=== PATIENT | male | born 1970 | race Caucasian/White ===

== ENCOUNTER → 2022-12-13 | Day surgery (SDC) | payer BC ==
[~2022-12-13] MED LIST: Flumazenil 0.1 MG/ML 10 ML MDV ONE; Ketamine 200 MG/20 ML MDV ONE; Lactated Ringers 1,000 ML IV SCH; Midazolam 1 MG/ML 2 ML SDV ONE; Phenylephrine 1% 10 MG/ML SDV ONE; Propofol 200 MG/20 ML SDV ONE; fentaNYL 50 MCG/ML SDV ONE
== END ==
LOC: CC.SDS 10:22
PROVIDERS: ATTEND Family Medicine
DX: Z12.11 Encounter for screening for malignant neoplasm of colon (principal); K57.30 Diverticulosis of large intestine without perforation or abscess without bleeding; M54.2 Cervicalgia; G89.29 Other chronic pain; M19.90 Unspecified osteoarthritis, unspecified site; Z79.899 Other long term (current) drug therapy; Z98.890 Other specified postprocedural states
CPT/HCPCS: 45378; J2250; J2370; J2704; J3010; J7120; J3490

== ENCOUNTER 2023-04-23 13:08 | Observation (INO) | payer BC ==
[2023-04-23] MEDS ORDERED: Sodium Chloride 0.9% 1,000 ML IV ONE (13:17)
[2023-04-23] MEDS ORDERED: LORazepam 2 MG/ML Syringe IVPUSH ONE (13:17)
[2023-04-23 13:33] LABS: BASOPHILS ABSOLUTE AUTO 0.03 10^3/uL (0.00-0.50); BASOPHILS PERCENT AUTO 0.5 % (0-1); EOSINOPHILS ABSOLUTE AUTO 0.05 10^3/uL (0.00-1.50); EOSINOPHILS PERCENT AUTO 0.8 % (0-6); HEMATOCRIT 43.5 % (42.0-52.0); HEMOGLOBIN 15.2 g/dL (14.0-18.0); LYMPHOCYTES ABSOLUTE AUTO 2.24 10^3/uL (0.60-5.00); LYMPHOCYTES PERCENT AUTO 34.7 % (24-44); MEAN CORPUSCULAR HEMOGLOBIN 29.7 pg (27.0-32.0); MEAN CORPUSCULAR HGB CONC 34.9 g/dL (32.0-36.0); MEAN CORPUSCULAR VOLUME 85.1 fL (83.0-97.0); MONOCYTES ABSOLUTE AUTO 0.42 10^3/uL (0.00-1.50); MONOCYTES PERCENT AUTO 6.5 % (0-10); NEUTROPHILS ABSOLUTE AUTO 3.71 x10^3/uL (1.80-8.00); NEUTROPHILS PERCENT AUTO 57.5 % (41-71); PLATELET COUNT,PLT 240 10^3/uL (150-400); RED BLOOD CELL COUNT 5.11 x10^6/uL (4.50-6.00); WHITE BLOOD CELL COUNT,WBC 6.5 10^3/uL (4.0-11.0)
[2023-04-23 13:50] LABS: ALBUMIN 4.4 g/dL (3.4-5.0); BILIRUBIN TOTAL 0.5 mg/dL (0.0-1.0); CALCIUM 9.5 mg/dL (8.4-10.1); EST CRCL DRUG DOSING (CG) 90.99 mL/min; MAGNESIUM 1.9 mg/dL (1.8-2.4); PROTEIN TOTAL,TP 7.7 g/dL (6.4-8.2)
[2023-04-23 14:45] LABS: APPEARANCE,URINE CLEAR (CLEAR); BILIRUBIN,URINE NEGATIVE (NEGATIVE); COLOR,URINE YELLOW (YELLOW); GLUCOSE,URINE NEGATIVE (NEGATIVE); KETONES,URINE NEGATIVE (NEGATIVE); LEUKOCYTE ESTERASE,URINE NEGATIVE (NEGATIVE); NITRITE,URINE NEGATIVE (NEGATIVE); OCCULT BLOOD,URINE NEGATIVE (NEGATIVE); PROTEIN,URINE NEGATIVE (NEGATIVE); UROBILINOGEN,URINE 0.2 EU/dL (0.2-1.0)
[2023-04-23 14:51] LABS: AMPHETAMINES,URINE NEGATIVE (NEGATIVE); BARBITURATES,URINE NEGATIVE (NEGATIVE); BENZODIAZEPINE,URINE NEGATIVE (NEGATIVE); MDMA (ECSTASY), URINE NEGATIVE (NEGATIVE); METHADONE,URINE NEGATIVE (NEGATIVE); METHAMPHETAMINES,URINE NEGATIVE (NEGATIVE); OPIATES,URINE NEGATIVE (NEGATIVE); OXYCODONE,URINE NEGATIVE (NEGATIVE); PHENCYCLIDINE,URINE NEGATIVE (NEGATIVE); TCA,URINE NEGATIVE (NEGATIVE)
[2023-04-23] MEDS ORDERED: Acetaminophen 325 MG Tab PO PRN (15:29)
[2023-04-23] MEDS ORDERED: Ondansetron 4 MG/2 ML SDV IV PRN (15:29)
[2023-04-23] MEDS ORDERED: Meclizine 12.5 MG Tab PO PRN (15:29)
[2023-04-23] MEDS ORDERED: Ondansetron 4 MG Tab.DIS PO PRN (15:29)
[2023-04-23] MEDS: Sodium Chloride 0.9% 1,000 ML IV SCH (16:15)
[2023-04-24] MEDS: Sodium Chloride 0.9% 1,000 ML IV SCH (00:19)
[2023-04-24] MEDS ORDERED: Cholecalciferol (Vitamin D3) 25 MCG Tab PO SCH (08:00)
[2023-04-24] MEDS ORDERED: Multivitamin Tab PO SCH (08:00)
[2023-04-24 08:09] LABS: CALCIUM 8.3 mg/dL (8.4-10.1); CREATININE 0.9 mg/dL (0.7-1.3); EST CRCL DRUG DOSING (CG) 101.1 mL/min; MAGNESIUM 1.7 mg/dL (1.8-2.4); POTASSIUM,K 4.3 mEq/L (3.5-5.0)
[2023-04-24 10:03] LABS: HEMOGLOBIN 13.2 g/dL (14.0-18.0); MEAN CORPUSCULAR HEMOGLOBIN 30.2 pg (27.0-32.0); MEAN CORPUSCULAR HGB CONC 33.8 g/dL (32.0-36.0); MEAN CORPUSCULAR VOLUME 89.2 fL (83.0-97.0); PLATELET COUNT,PLT 201 10^3/uL (150-400); RED BLOOD CELL COUNT 4.37 x10^6/uL (4.50-6.00); WHITE BLOOD CELL COUNT,WBC 4.2 10^3/uL (4.0-11.0)
[2023-04-24 10:04] LABS: BASOPHILS ABSOLUTE AUTO 0.02 10^3/uL (0.00-0.50); BASOPHILS PERCENT AUTO 0.5 % (0-1); EOSINOPHILS ABSOLUTE AUTO 0.13 10^3/uL (0.00-1.50); EOSINOPHILS PERCENT AUTO 3.1 % (0-6); LYMPHOCYTES ABSOLUTE AUTO 1.96 10^3/uL (0.60-5.00); LYMPHOCYTES PERCENT AUTO 46.4 % (24-44); MONOCYTES ABSOLUTE AUTO 0.35 10^3/uL (0.00-1.50); MONOCYTES PERCENT AUTO 8.3 % (0-10); NEUTROPHILS ABSOLUTE AUTO 1.76 x10^3/uL (1.80-8.00); NEUTROPHILS PERCENT AUTO 41.7 % (41-71)
== END 2023-04-24 13:35 | disposition home or self-care (01) ==
LOC: CC.ED 13:08 → UNDOADMOB 14:59 → CC.MS 14:59
PROVIDERS: ADMIT Nurse Practitioner; ATTEND Nurse Practitioner
DX: H81.10 Benign paroxysmal vertigo, unspecified ear (principal); M54.2 Cervicalgia; G89.29 Other chronic pain; Z98.890 Other specified postprocedural states; Z79.899 Other long term (current) drug therapy
CPT/HCPCS: 36415; 80048; 80053; 80305-QW; 81003; 83735; 84484; 85025; 93005; 93010; 96361; 96374; 97112-GP; 97161-GP; 99285-25; A9270-GY; G0378; J2060; J7030